=== PATIENT | male | born 1960 | race Hispanic/Latino ===

== ENCOUNTER 2021-02-22 10:55 | Emergency (ER) | payer SELFPAY ==
[~2021-02-22] VITALS: Ht 162.6 cm; Wt 77.0 kg
[2021-02-22 12:20] VITALS: BP 126/79
[2021-02-22] MEDS ORDERED: COZAAR50 MG PO (13:18)
== END 2021-02-22 12:20 | disposition home or self-care (01) | DRG 605 ==
LOC: ED 10:55
PROC: 0HQ0XZZ Repair Scalp Skin, External Approach (ICD-10-PCS; principal; 2021-02-22)
DX: S01.01XA Laceration without foreign body of scalp, initial encounter (principal); I10 Essential (primary) hypertension; W20.8XXA Other cause of strike by thrown, projected or falling object, initial encounter; Y92.009 Unspecified place in unspecified non-institutional (private) residence as the place of occurrence of the external cause

== ENCOUNTER 2021-03-02 14:20 | Emergency (ER) | payer SELFPAY ==
[~2021-03-02] VITALS: Ht 162.6 cm; Wt 80.0 kg
[~2021-03-02 14:20] MED LIST: COZAAR50 MG PO
[2021-03-02 15:24] VITALS: BP 130/78
== END 2021-03-02 15:30 | disposition home or self-care (01) | DRG 950 ==
LOC: ED 14:20
DX: S01.91XD Laceration without foreign body of unspecified part of head, subsequent encounter (principal); X58.XXXD Exposure to other specified factors, subsequent encounter